=== PATIENT | female | born 2000 | race Caucasian/White ===

== ENCOUNTER 2018-11-22 17:30 | Emergency (ER) | payer SELFPAY ==
[2018-11-22] MEDS ORDERED: Ondansetron ODT TAB* 4 MG PO ONE (18:29)
--- NOTE | 2018-11-22 18:31 | UC ---
Throat Pain/Nasal Diogo HPI - HPI Summary HPI Summary: 17-year-old female comes in with a chief complaint of sore throat headache and fevers for 4 days. Hurts worse when she swallows. She's also been nauseous. Tells me she passed out twice once in the shower once when getting up to go to the couch. Decreased by mouth intake. She mentioned her heart felt fluttery before one of her passing out episodes. No chest pain. Minimal rhinorrhea. Reports fevers of as high as 102 at home. No complaint of any stiff neck or back pain. - History of Current Complaint Chief Complaint: UCRespiratory Stated Complaint: FEVER THROAT PAIN Time Seen by Provider: 11/22/18 18:13 Hx Last Menstrual Period: CURRENT Pain Intensity: 7 - Allergies/Home Medications Allergies/Adverse Reactions: Allergies Allergy/AdvReac Type Severity Reaction Status Date / Time bismuth subsalicylate Allergy Hives Verified 11/22/18 18:08 [From Pepto-Bismol] Home Medications: Home Medications Control* 11/22/18 [History] Med For Ptsd/Depression* 11/22/18 [History] PMH/Surg Hx/FS Hx/Imm Hx Previously Healthy: Yes - Surgical History Surgical History: Yes Surgery Procedure, Year, and Place: WISDOM TEETH - Family History Known Family History: Positive: Non-Contributory - Social History Alcohol Use: Occasionally Substance Use Type: Marijuana Smoking Status (MU): Never Smoked Tobacco Review of Systems All Other Systems Reviewed And Are Negative: Yes Constitutional: Positive: Fever, Other - SEE HPI Skin: Positive: Negative Eyes: Positive: Negative ENT: Positive: Sore Throat, Nasal Discharge, Sinus Congestion Respiratory: Positive: Negative Cardiovascular: Positive: Palpitations Gastrointestinal: Positive: Nausea Genitourinary: Positive: Negative Motor: Positive: Negative Neurovascular: Positive: Negative Musculoskeletal: Positive: Negative Neurological: Positive: Negative Psychological: Positive: Negative Is Patient Immunocompromised?: No Physical Exam Triage Information Reviewed: Yes Appearance: Well-Appearing, No Pain Distress, Well-Nourished Vital Signs: Initial Vital Signs Temp 99.9 F 11/22/18 18:00 Pulse 111 11/22/18 18:00 Resp 20 11/22/18 18:00 BP 128/70 11/22/18 18:00 Pulse Ox 100 11/22/18 18:00 Vital Signs Reviewed: Yes Eye Exam: Normal Eyes: Positive: Conjunctiva Clear ENT: Positive: Pharynx normal, Nasal drainage, TMs normal Neck: Positive: Supple Respiratory: Positive: Lungs clear, Normal breath sounds, No respiratory distress Cardiovascular: Positive: RRR Musculoskeletal: Positive: Strength Intact, ROM Intact Neurological Exam: Normal Neurological: Positive: Alert, Muscle Tone Normal Psychological Exam: Normal Psychological: Positive: Age Appropriate Behavior Skin Exam: Normal Throat Pain/Nasal Course/Dx - Course Course Of Treatment: DISCUSSED VIRAL VERSES BACTERIAL INFECTION AND THE ROLE OF ANTIBIOTICS. THE PATIENT PREFERS TO BE ON ANTIBIOTICS AT THIS TIME. I recommended the patient go to the emergency department for further evaluation of her syncope and she declined. She told me that if she has another syncopal episode she will go to the emergency department then. Follow-up with primary care doctor get reevaluated sooner if worse any questions or concerns. - Differential Dx/Diagnosis Provider Diagnosis: Pharyngitis, Upper respiratory infection, Syncope, Nausea Discharge - Sign-Out/Discharge Documenting (check all that apply): Patient Departure All imaging exams completed and their final reports reviewed: No Studies - Discharge Plan Condition: Stable Disposition: HOME Prescriptions: Amoxicillin PO (*) [Amoxicillin 500 MG CAP*] 500 mg PO TID #30 cap Patient Education Materials: Pharyngitis (ED), Syncope (ED), Upper Respiratory Infection (ED), Acute Nausea and Vomiting (ED) Forms: *Work Release Referrals: No Primary Care Phys,NOPCP [Primary Care Provider] - Additional Instructions: FOLLOW UP WITH YOUR DOCTOR. GO TO THE EMERGENCY DEPARTMENT IF YOUR CONDITION WORSENS; YOU PASS OUT, YOU FEEL ILL, CHEST PAIN, PALPITATIONS OR ANY QUESTIONS OR CONCERNS. - Billing Disposition and Condition Condition: STABLE Disposition: Home
== END 2018-11-22 18:42 | disposition home or self-care (01) ==
LOC: UCEAST 17:30
DX: J02.9 Acute pharyngitis, unspecified (principal); J06.9 Acute upper respiratory infection, unspecified
CPT/HCPCS: 87651; 99202; A9270-GY; G0463

== ENCOUNTER 2019-01-19 11:29 | Emergency (ER) | payer MEDICAID ==
[2019-01-19 11:40] VITALS: BP 130/77
--- NOTE | 2019-01-19 11:47 | UC ---
Shoulder Pain HPI - HPI Summary HPI Summary: Patient is a 18yo female presenting with left should pain since last night after she fell on off her skateboard onto the cement. Described pain as sharp and throbbing. Denies radiation of pain. Denies numbness and tingling. Notes decreased ROM due to pain. Denies swelling or bruising of shoulder. Notes abrasion to left elbow but no elbow pain. Denies decreased sensation. Denies neck pain. - History of Current Complaint Chief Complaint: UCUpperExtremity Stated Complaint: SHOULDER INJURY Time Seen by Provider: 01/19/19 11:46 Hx Obtained From: Patient Hx Last Menstrual Period: unknown Onset/Duration: Sudden Onset, Lasting Hours Timing: Constant Severity Initially: Severe Severity Currently: Moderate Pain Intensity: 8 Pain Scale Used: 0-10 Numeric Aggravating Factor(s): Movement, Lifting, Flexion, Extension Alleviating Factor(s): Rest - Allergies/Home Medications Allergies/Adverse Reactions: Allergies Allergy/AdvReac Type Severity Reaction Status Date / Time bismuth subsalicylate Allergy Hives Verified 01/19/19 11:40 [From Pepto-Bismol] PMH/Surg Hx/FS Hx/Imm Hx - Surgical History Surgical History: Yes Surgery Procedure, Year, and Place: WISDOM TEETH - Family History Known Family History: Positive: Non-Contributory - Social History Alcohol Use: Occasionally Substance Use Type: Marijuana Substance Use Comment - Amount & Last Used: occasionally Smoking Status (MU): Current Every Day Smoker Review of Systems All Other Systems Reviewed And Are Negative: Yes Constitutional: Positive: Negative Skin: Positive: Other - abrasion of left shoulder Eyes: Positive: Negative Respiratory: Positive: Negative. Negative: Shortness Of Breath, Cough Cardiovascular: Positive: Negative. Negative: Palpitations, Chest Pain Gastrointestinal: Positive: Negative Motor: Positive: Decreased ROM. Negative: Weakness Neurovascular: Positive: Negative. Negative: Decreased Sensation, Decreased Pulses Musculoskeletal: Positive: Arthralgia, Decreased ROM. Negative: Edema, Myalgia Neurological: Positive: Negative. Negative: Headache, Weakness, Paresthesia, Numbness Psychological: Positive: Negative Physical Exam Triage Information Reviewed: Yes Appearance: Well-Appearing, No Pain Distress, Well-Nourished Vital Signs: Initial Vital Signs Temp 97.8 F 01/19/19 11:34 Pulse 93 01/19/19 11:34 Resp 16 01/19/19 11:34 BP 130/77 01/19/19 11:34 Pulse Ox 98 01/19/19 11:34 Vital Signs Reviewed: Yes Eyes: Positive: Conjunctiva Clear ENT: Positive: Hearing grossly normal Neck: Positive: Supple Respiratory: Positive: No respiratory distress Cardiovascular: Positive: Pulses Normal, Brisk Capillary Refill Musculoskeletal: Positive: No Edema, Strength Limited @ - left shoulder abduction due to pain, ROM Limited @ - left shoulder active ROM flexion, extension, internal/external rotation, abduction, and adduction due to pain Neurological: Positive: Alert Psychological: Positive: Age Appropriate Behavior Skin: Positive: Other - abrasion of left posterior elbow. No ecchymosis noted Diagnostics - Radiology left shoulder xray Radiology Interpretation Completed By: Radiologist Summary of Radiographic Findings: FINDINGS: The bones are in normal alignment. No fracture is seen. The glenohumeral and acromioclavicular joint spaces appear maintained. IMPRESSION: NO EVIDENCE FOR FRACTURE. Shoulder Course/Dx - Course Course Of Treatment: Discussed negative xray findings with patient. Patient instructed to use rest, ice, heat, and sling to alleviate pain symptoms. Instructed to use OTC analgesics as directed for pain relief. If symptoms persist or worsen, patient instructed to follow up with the orthopedic referral given. Patient voiced understanding and agreed to treatment plan. - Differential Dx/Diagnosis Provider Diagnosis: Left shoulder pain Discharge ED - Sign-Out/Discharge Documenting (check all that apply): Patient Departure All imaging exams completed and their final reports reviewed: Yes - Discharge Plan Condition: Stable Disposition: HOME Patient Education Materials: Shoulder Pain (ED) Forms: *Work Release Referrals: [facility] [Outside] - If Needed Alexandria Fong MD [Medical Doctor] - If Needed Additional Instructions: As discussed, your xrays did not show any fractures. Rest, ice, heat, and use sling to help alleviate pain symptoms. Use over the counter pain medications as directed for pain relief. Refrain from physical activity that makes pain worse until pain has resolved. Follow up with the [facility] or the orthopedic referral as listed below. - Billing Disposition and Condition Condition: STABLE Disposition: Home
== END 2019-01-19 12:58 | disposition home or self-care (01) ==
LOC: UCEAST 11:29
DX: M25.512 Pain in left shoulder (principal); F17.210 Nicotine dependence, cigarettes, uncomplicated
CPT/HCPCS: 99212; G0463